=== PATIENT | male | born 1995 | race Two or more races ===

== ENCOUNTER 2024-12-22 09:14 | Emergency (ER) | payer MEDICAID, SELFPAY ==
[2024-12-22 09:15] VITALS: BMI 22.1
[2024-12-22 10:04] VITALS: BP 125/90; PULSE 95; RESP 18; TEMP 36.8; O2SAT 95; BMI 23.7
--- NOTE | 2024-12-22 10:09 | PD.EDRME ---
Rapid Medical Screening Exam RME Arrival date/time: 12/22/24 09:14 This is a 29-year-old male who presents to the emergency department with complaints of nausea vomiting unable to keep fluids down. States he had 1 week of binge drinking. I have greeted and performed a focused initial assessment of this patient. Initial appropriate labs ordered at this time. A comprehensive ED assessment and evaluation of the patient and analysis of all test and completion of medical decision making process will be conducted by additional ED provider. Chief Complaint: Alcohol Time Seen by Provider: 12/22/24 09:56 Vital signs: Vital Signs Temperature 98.2 F 12/22/24 10:04 Pulse Rate 95 12/22/24 10:04 Respiratory Rate 18 12/22/24 10:04 Blood Pressure 125/90 H 12/22/24 10:04 Pulse Oximetry (%) 95 12/22/24 10:04 Oxygen Delivery Method Room Air 12/22/24 10:04
[2024-12-22 10:26] LABS: Collection Type, Urine Clean Catch; Squamous Epithelial Cell,Urine 0 /hpf (0-5)
[2024-12-22 10:38] LABS: Bilirubin,Urine Negative (Negative); Blood,Urine Negative (Negative); Clarity,Urine Clear (Clear/Hazy); Color,Urine Yellow (Lt Yel-Yel); Glucose, Urine Negative (Negative); Ketones,Urine 4+ (Negative); Leukocyte Esterase,Urine Negative (Negative); Nitrite,Urine Negative (Negative); PH,Urine 6.5 (5.0-7.0); Protein,Urine 2+ (Neg - Trace); RBC,Urine 3 /hpf (0-3); Specific Gravity,Urine 1.029 (1.001-1.035); WBC,Urine 6 /hpf (0-5)
[2024-12-22 10:47] LABS: Basophils # (Auto) 0.1 Thou/mm3 (0.0-0.2); Basophils % (Auto) 1 % (0-2.5); Eosinophils % (Auto) 0 % (0-10); Hematocrit 46.4 % (41.0-53.0); Hemoglobin 16.9 g/dL (13.5-16.0); Immature Granulocytes % (Auto) 0 % (0-0); Immature Granulocytes Auto 0.03 Thou/mm3 (0.00-0.00); Lymphocytes # (Auto) 1.4 Thou/mm3 (1.0-4.8); Lymphocytes % (Auto) 13 % (10-50); Mean Corpuscular HGB Conc 36.4 g/dl (31.0-37.0); Mean Corpuscular Hemoglobin 33.1 pg (25.0-35.0); Mean Corpuscular Volume 91 fL (80-100); Monocytes # (Auto) 0.5 Thou/mm3 (0.0-0.8); Monocytes % (Auto) 5 % (0-12); Neutrophils # (Auto) 8.8 Thou/mm3 (1.8-7.7); Neutrophils % (Auto) 82 % (37-80); Nucleated Red Blood Cell % 0 /100 WBC (0); Platelet Count 352 Thou/mm3 (140-440); RDW Standard Deviation 40.7 fL (35.1-43.9); Red Blood Count 5.11 Miln/mm3 (4.50-5.90); White Blood Count 10.8 Thou/mm3 (3.8-10.6)
[2024-12-22 11:08] LABS: Alanine Aminotransferase 24 U/L (10-49); Albumin, Serum 5.3 gm/dL (3.5-5.0); Albumin/Globulin Ratio 1.5 (1.2-2.2); Alcohol, Blood Medical < 10.0 mg/dL (0-10.0); Alkaline Phosphatase 91 U/L (46-116); Anion Gap 12 (7-16); Aspartate Amino Transferase 21 U/L (0-34); BUN/Creatinine Ratio 11 Ratio (12-20); Bilirubin,Total 2.2 mg/dL (0.3-1.2); Blood Urea Nitrogen 9 mg/dL (9-23); Calcium 10.1 mg/dL (8.3-10.6); Calcium (Corrected) 10.1 mg/dL (8.5-10.1); Chloride 97 mMol/L (98-107); Creatinine (Component) 0.8 mg/dL (0.6-1.3); Estimated Creatinine Clearance 136.2 mL/min (>60); Globulin 3.5 gm/dL (2.3-3.5); Glucose 86 mg/dL (74-106); Lipase 44 U/L (12-53); Osmolality,Calculated 271 (275-295); Potassium 4.2 mMol/L (3.4-5.1); Sodium 137 mMol/L (136-145); Total Protein 8.8 gm/dL (5.7-8.2); eGFR > 60 See Note
[2024-12-22] MEDS: SODIUM CHLORIDE 0.9% 1000 ML 1,000 ML 999 ML IV (11:43)
[2024-12-22] MEDS: ONDANSETRON INJ 2 MG/ML INJ 2 ML 4 MG IV (11:44)
--- NOTE | 2024-12-22 14:19 | EDNOTE_ITS ---
ED Alcohol RME/HPI General Chief Complaint: Alcohol Stated Complaint: ETOH Time Seen by Provider: 12/22/24 09:56 Arrival date/time: 12/22/24 09:14 RME / HPI RME / HPI narrative: 29-year-old male who presents to the emergency department with complaints of nausea vomiting unable to keep fluids down. She been ongoing for the last few days. States he had 1 week of binge drinking. Patient last drink was last night. Denies any other complaints. Related Data Previous Rx's ?Medication ?Instructions ?Recorded chlordiazepoxide HCl 25 mg capsule 25 mg PO TID PRN al cohol 12/22/24 withdrawal #20 caps Allergies Allergy/AdvReac Type Severity Reaction Status Date / Time No Known Allergies Allergy Verified 12/22/24 09:19 Review of Systems Review of Systems Narrative Review of Systems: Review of system reviewed and within normal limits except mentioned in HPI ED Exam Narrative Physical exam: VITAL SIGNS: Reviewed. GENERAL APPEARANCE: Alert and interactive, follows commands, no acute distress, HEAD AND FACE: Non-traumatic. ENT: PERRL, pink conjunctivitis, eyelid no trauma, Mucous membrane moist. NECK: Supple, nontender, no nuchal rigidity. CHEST: No tenderness, no crepitus, no paradoxical movement, no retractions. LUNGS: Clear, well ventilated, symmetric, no rales, no wheezing, no ronchi, no stridor, good breath sounds bilaterally. HEART: Regular rate, regular rhythm, no murmur, no gallops. ABDOMEN: Soft, positive bowel sounds, nondistended, no guarding, nontender, no rebound, no masses, RECTAL: Deferred. GENITAL: Deferred. NEUROLOGICAL: Gross motor function intact sensory function intact, Appropriate for age. MUSCULOSKELETAL: low back nontender, full range of motion. EXTREMITIES: Nontender, full range of motion. SKIN: Color pink, dry, no rash, no lacerations, no abrasions, no contusions. LYMPHATICS: Deferred. Course Quality Measures none Orders Category Date Time Status CBC Stat Lab 12/22/24 10:33 Completed Comprehensive Metabolic Panel Stat Lab 12/22/24 10:33 Completed Lipase Stat Lab 12/22/24 10:33 Completed STEPHEN [Alcohol, Blood Medical] Stat Lab 12/22/24 10:33 Completed Urinalysis Stat Lab 12/22/24 10:20 Completed Ondansetron Inj [Zofran Inj] Med 12/22/24 10:08 Discontinued 4 mg IV X1 ONE Sodium Chloride 0.9% 1000 ml [Ns] 1,000 ml Med 12/22/24 10:08 Discontinued IV 999 mls/hr Vital Signs Vital signs: Vital Signs Temperature 98.2 F 12/22/24 10:04 Pulse Rate 95 12/22/24 10:04 Respiratory Rate 18 12/22/24 10:04 Blood Pressure 125/90 H 12/22/24 10:04 Pulse Oximetry (%) 95 12/22/24 10:04 Oxygen Delivery Method Room Air 12/22/24 10:04 Discharge Plan Plan Patient Disposition: HOME (Self Care) Disposition Comment: stable Prescriptions/Referrals Prescriptions/Med Rec: New chlordiazepoxide HCl 25 mg capsule 25 mg PO TID PRN (Reason: alcohol withdrawal) Qty: 20 0RF Referrals: No Primary/Family,Physician [Primary Care Provider] - In 1 week Problem List Clinical Impression: Alcohol withdrawal Patient/Caregiver Discharge Instructions Education Materials: Alcohol Withdrawal: What to Expect Additional Instructions: Thank you for the opportunity for serving you today. You are stable for discharged . You are advised to: Follow-up with your PCP in 1 to 2 days Return to ED for worsening of symptoms Increase oral fluids Take medication as prescribed Please stop abusing alcohol I prescribed you Librium will help you with your withdrawal symptoms Print Language: Serbian Stand Alone Forms: Bess Award Info., Patient Portal Info Letter Alcohol MDM Narrative MDM Narrative: 29-year-old male who presents to the emergency department with complaints of nausea vomiting unable to keep fluids down. She been ongoing for the last few days. States he had 1 week of binge drinking. Patient last drink was last night. Denies any other complaints. Laboratory couple came back unremarkable. Patient's alcohol level is less than 10. Patient received IV fluids, and Zofran. Patient told me that he is going to stop drinking alcohol for good. I prescribe him Librium for withdrawal symptoms. Patient appears nontoxic and hemodynamically stable. Patient discharged home and instructed to follow-up with primary care provider in 24 to 48 hours. Instructed to return to the emergency department immediately if worsening of symptoms Patient data External records reviewed:: None Clinical information provided by:: patient Social determinants that could affect healthcare access:: alcohol use Patient has the following chronic illnesses:: None How is presenting disease/condition affected by chronic disease/condition?: no chronic disease Evaluation data The following diagnostics were reviewed and interpreted by me:: lab results Lab and/or radiology exams considered but not ordered:: None Interpretation Summary: See results in [facility] Medications / Prescriptions Medications or Prescriptions considered but not ordered:: None Medication administrations:: Medication Administration History Discontinued Medications Sodium Chloride (Ns) 1,000 mls @ 999 mls/hr IV .Q1H1M ONE Stop: 12/22/24 11:08 Last Infusion: 12/22/24 13:05 Dose: Infused Documented By: Admin: 12/22/24 11:43 Dose: 999 mls/hr Documented By: MUKUND Ondansetron HCl (Ondansetron Inj 2 Mg/Ml Inj 2 Ml) 4 mg IV X1 ONE; Protocol Stop: 12/22/24 10:09 Last Admin: 12/22/24 11:44 Dose: 4 mg Documented By: MUKUND Zofran and IV fluids and Librium Consultations Consultation(s) initiated? (list below): No Diagnosis Differential diagnosis alcohol: alcohol withdrawal delirium, alcohol intoxication and alcohol withdrawal syndrome Most likely diagnosis given after review of the tests above:: Chronic alcoholism Admission Indicated Admission indicated?: not indicated Admission Request Was there a request for admission?: No Disposition Plan Disposition Plan: Discharge Discharge Attestation Discharge Attestation: The patient and all family members were given an opportunity to ask questions and understood the discharge instructions. Discharge instructions specifically effects, indications for sooner follow up or return to the emergency department, and the expected course of current diagnosis. Patient condition: Stable
== END 2024-12-22 14:20 | disposition home or self-care (01) ==
PROVIDERS: Nurse Practitioner Primary Care; Emergency Provider Emergency Medicine
DX: F10.939 Alcohol use, unspecified with withdrawal, unspecified (principal)
CPT/HCPCS: 36415; 80053; 80320; 81001; 83690; 85025; 96361; 96374; 99284; J2405; J7030; G0480